=== PATIENT | female | born 1940 | race Caucasian/White ===

== ENCOUNTER 2021-02-05 13:00 | Outpatient (RCR) | payer MEDICARE, OTHER, SELFPAY ==
--- NOTE | 2020-12-06 14:06 | HP.PTEVAL_ITS ---
Patient's Visit Information RED MCMULLEN is a 80 year old F referred to Physical Therapy by BHAVESH Meyer with a diagnosis of R piriformis syndrome, thoracic kyphosis. Date of Evaluation: 12/06/20 Physical Therapist: Earle Coyne, DPT, OCS, CSCS - Visit Plan Frequency: 2-3x /Week Duration: 4-6 Weeks Plan: 2-3x/week for 4-6 weeks for... 1. start with R piriformis DTR and rollout and stretch, hip ROM and strength. 2. Progress to gneeral LE , core and post ural strength and ext of thoracic spine/posutral ex. all to HEP. Emphasize use of wh walker and posture. - Subjective I have sciatica bad. I have butt pain on R side. Has been there 4 months insidiously. It is constant in low butt R adn into groin and lateral leg. It is constant and nothing makes it better or worse. Pain is 7/10 much of time. Sleep is interupted now and then, better in recliner(change of position). Walks at home without AD but balance not great. Only one fall years ago 2009. Has neuroapthy. Uses WC today and cannot wealk real far. Back is worse with walking and standing so she avoids that. Spends day cleaning house and moving around house. needs 2 rails for steps. Can run sweeper and mow lawn on tractor. Basic ADLs are getting done I, bathing in chair that lowers her into tub. Steps I at home with rails. Not employed. Enjoys reading and cross word puzzles. Neck and shoulder are not painful but she is told that she hunches o ramonita. - Pain R LB and buttock Pain Intensity (Out of 10): 7 Pain Intensity Range: 7 - Objective Pushed back to eval room in WC, Able to walk with cane R UE with neuropathic gait pattern slow and short steps but safe 200 feet, better with wh walker but does not wish to use. Trasnfers are I chair with UE, Bed labored and weak core but able. Able to heel raise and toe raise. Sensation at deficit in feet whcih are swollen with pitting edema B today. Reflexes 1/3 patella and achilles B. Strength ankles 3+, knees 4- adn hip abd and ext 3 and flexion 3+, no pain. LE AROM WFL except R hip rotations limited 10 degrees vs L, tightness in gastroc and hip flexors. Strength UE 3+/5. Max tender to touch R piriformis, not L. Tight in R piriformis . + R hip scour. UE AROM WFL and without hesitation or pain. Scap and head are FW and protracted and kyphosis apparent in Thoracic spine. - Balance/Special Test Scores Functional Gait Assessment Score: 21 % Disability: 30.0000 Oswestry Neck Score: 6 - Goals Goal 1:: R hip pain 1/10 at worst and intermittent and manageable, 75% better. Goal Time Frame: 4-6 Weeks Goal 2:: I appropriaate HEP for posture, hip and core and LE strength safely aand I. Goal Time Frame: 4-6 Weeks Goal 3:: FGA score to diminish fall risk - Rehabilitation Potential Physical Therapy Diagnosis: R hip pain and limiting mobility. Rehabilitation Potential: Fair - Anticipated Interventions Patient/Client Instruction: Educate patient on: Condition, Plan of Care For the Purpose of:: To decrease pain, To increase ROM, To improve nutrient delivery to tissue, To increase oxygenation perfusion Therapeutic Exercise to Include: Strength training, Balance training, Postural training, Flexibilty training, Gait and locomotor training, Passive ROM, Active ROM For the Purpose of:: To decrease pain, To increase ROM, To improve muscle performance and motor function, To increase tolerance to activity/condition/position, To improve ability of physical actions for home/community/work/leisure Manual Therapy Techniques to Include: Mobilization, Soft tissue mobilization For the Purpose of:: To decrease pain, To increase ROM Thank you for the opportunity to evaluate your patient. For Medicare and Medicare HMO plans, please review the plan of care and approve it. It will need to be FAXED BACK to us at [phone] for Medicare purposes. For Medicare only, by signing this I certify the plan of care. Please let me know if there are questions or concerns regarding this plan of care. Physician Signature: Date:
--- NOTE | 2021-01-16 13:27 | HP.PTREVAL ---
BHAVESH Meyer, It has been my pleasure to treat RED MCMULLEN over the last 11 visits for R piriformis syndrome, thoracic kyphosis. Please see the progress note below for an update on the physical therapy plan of care! Subjective: Walking feels better since starting the US and IFES. Was hard to walk at times without the modalities. Still doing piriformis stretch but has held on others. Not going to doctor until 02/14. Objective/Function: Very little change to overall presentation. blacking wheel tender R piriformis moderately. Walking I with and without cane. recommended use of cane 100% of time. Still lags 10 degrees in hip rotations on R vs L. Appropriate to continue modalities and work on balance when feeling much better. Questionable prognosis. goals still appropriate and questionable prognosis. pt to contact doctor regarding f/u for next medical step as she is suspicious for hip OA. Plan Plan: 2-3x/week for 2-3 weks for US and IF Es to R hip only and work on balance when painfree. Balance/Gait/Functional tests - Balance/Special Test Scores Functional Gait Assessment Score: 20 % Disability: 33.3400 Oswestry Low Back Score: 21 Oswestry Neck Score: 6 Goals Goal 1:: R hip pain 1/10 at worst and intermittent and manageable, 75% better. Goal Time Frame: 4-6 Weeks Goal Progress: Progressing Goal 2:: I appropriaate HEP for posture, hip and core and LE strength safely aand I. Goal Time Frame: 4-6 Weeks Goal Progress: not stretching completely Goal 3:: FGA score to diminish fall risk Goal Progress: approp Anticipated Interventions Patient/Client Instruction: Educate patient on: Condition, Plan of Care For the Purpose of:: To decrease pain, To increase ROM, To improve nutrient delivery to tissue, To increase oxygenation perfusion Therapeutic Exercise to Include: Strength training, Balance training, Postural training, Flexibilty training, Gait and locomotor training, Passive ROM, Active ROM For the Purpose of:: To decrease pain, To increase ROM, To improve muscle performance and motor function, To increase tolerance to activity/condition/position, To improve ability of physical actions for home/community/work/leisure Manual Therapy Techniques to Include: Mobilization, Soft tissue mobilization For the Purpose of:: To decrease pain, To increase ROM Please do not hesitate to contact me at [phone] by phone or if you have questions or concerns regarding this new plan of care! Sincerely, Earle Coyne, DPT, OCS, CSCS
--- NOTE | 2021-03-01 09:56 | HP.PTDCSUM ---
It has been my pleasure to treat RED MCMULLEN referred by BHAVESH Meyer, with the diagnosis of R piriformis syndrome, thoracic kyphosis for a total of 16 visit(s). Discharge Date: 03/01/21 Please see the following information for a summary of their discharge status. Subjective: Pt is sore in R piriformis today and continues to need US (and home TENS) for pain relief. Pt says she's still struggling with balance and walking - says she really needs to rely on her to function. R LB and buttock Pain Intensity (Out of 10): 4 % Improvement: 75 Objective/Function: Pt was a 4/10 before and after US today, but able to amb a little better afterwards. Pt. showed small progress w/in balance activities by EOS but still finds it very challenging. Pt states she is having trouble with sit to stands. Goal 1:: R hip pain 1/10 at worst and intermittent and manageable, 75% better. Goal Progress: Progressing Goal 2:: I appropriaate HEP for posture, hip and core and LE strength safely aand I. Goal Progress: not stretching completely Goal 3:: FGA score to diminish fall risk Goal Progress: approp Plan: Returned patients phone call. she had x ray of hip and is bone on bone. will see Dr. Mathew and no more therapy at this time. Wants to ocme to HP if needs more therapy. d/c PT at this time. Discharge Comments: Returned patients phone call. she had x ray of hip and is bone on bone. will see Dr. Mathew and no more therapy at this time. Wants to ocme to [facility] if needs more therapy. d/c PT at this time. If there are questions or concerns regarding this patient's physical therapy, please feel free to call me at [phone]. Thank you for the referral of this patient. Sincerely, Earle Coyne, DPT, OCS, CSCS Balance/Gait/Functional tests - Balance/Special Test Scores Functional Gait Assessment Score: 20 % Disability: 33.3400 Oswestry Low Back Score: 21 Oswestry Neck Score: 6
== END 2021-02-05 19:00 | disposition home or self-care (01) ==
LOC: PT 13:00
PROVIDERS: PCP Physician Assistant; Visit Provider Physician Assistant
DX: M54.2 Cervicalgia (principal); G57.02 Lesion of sciatic nerve, left lower limb; M25.511 Pain in right shoulder; G89.29 Other chronic pain; M25.512 Pain in left shoulder; M40.204 Unspecified kyphosis, thoracic region
CPT/HCPCS: 97035; 97110; 97140; 97163; 97164

== ENCOUNTER 2021-06-19 11:44 | Observation (INO) | payer MEDICARE, OTHER, SELFPAY ==
--- NOTE | 2021-05-30 07:07 | PCM.HP.BLA ---
History and Physical History and Physical [facility] Patient Name: Pauline Garner : 1940 From: RANULFO BERRIOS PA-C DATE OF SURGERY: 06/19/2021 SCHEDULED PROCEDURE: right total hip arthroplasty HISTORY OF PRESENT ILLNESS: Preoperative history and physical exam was performed on May 29, 2021. This is a 80-year-old female who has had ongoing pain for the past 1 year with her right hip. Pain can reach as high as a 9/10 with activities. Her pain is constant, aching, sore. She has increased pain with going up and down stairs and walking. She does have start up pain. She gets pain located in the right buttock region around into the groin and anterior thigh. Patient has difficulty with activities of daily living including getting dressed and shopping. Patient has tried conservative measures including rest, elevation with minimal relief. She has tried heat, compression, physical therapy, home exercises without relief. She has tried oral medications including Tylenol with no relief. She has to use a lift chair at home. She denies previous surgery on the right hip. For the past 6 months she has been using a cane and walker due to the pain. Breast and colon cancer in remission. She has undergone previous total knee replacements. After failing conservative measures and discussing all treatment options with Dr. Magnus Hurt, the patient does wish to proceed with a right total hip arthroplasty. We are obtaining surgical clearance from the primary care provider Marcus Spencer. Patient currently denies any chest pain, shortness of breath, fevers chills or recent infections. REVIEW OF SYSTEMS: Review Of Systems: Constitutional: Denies anorexia, change in appetite, fever, difficulty sleeping, weight change. Cardiovasular: Denies chest pain, heart murmur, irregular heartbeat and peripheral vascular disease. Respiratory: Denies asthma, cough, pneumonia, sleep apnea, shortness of breath, tuberculosis and wheezing. Gastrointestinal: Denies constipation, diarrhea, heartburn, nausea, rectal itching, bloody stools and vomiting. Genitourinary: Denies incontinence. Musculoskeletal: Reports leg swelling and trouble walking, but denies pain and weakness. Skin: Denies Raynaud's, history of shingles and tattoo. Neurological: Reports numbness/tingling due to chemo treatments, but denies ambulatory dysfunction, dizziness and tremor Psychiatric: Denies anxiety, depression, insomnia, mental illness and stress. Hematologic/Lymphatic: Denies anemia, bleeding/bruising tendency and past transfusion. Reviewed and updated. PAST MEDICAL HISTORY: Advance Care Plan: Other Directive, LIVING WILL Effective Date: 01/31/2019 Other Directive, POA Effective Date: 01/31/2019 Past Medical History: Medical Problems: Arthritis, High Blood Pressure Cancer - Breast and colon Diabetes, Hypercholesterolemia, Vertigo Accidents: Fracture - RT Wrist Surgical Hx: Tubal Ligation - ? [facility] Cancer Surgery - (02/09/2009) EXPRESSED - [facility] Knee Replacement LT - [facility] 2012 Colon Cancer, Hernia Repair, Bilat Cataract Knee Replacement RT - (04/19/2019) SAW @ [facility] Anesthesia Complications: None Assistive Devices: Glasses, Cane, Walker Reviewed and updated. SOCIAL HISTORY: Social History: Marital: .Occupation: Retired.Work Status: Retired.Hand Dominance: Right-handed. Personal Habits: Cigarette Use: Never Smoked Cigarettes.Smokeless Tobacco: Never Used Smokeless Tobacco.E-Cigarette Use: Never used.Alcohol: Denies use.Drug Use: Denies Use.Enjoy Exercising: Never Exercises. Reviewed and updated. VITALS: Ht: 64 Wt: 170lb Wt k.112 BMI: 29.2 BP: 126/82 Pulse: 89 Resp: 16 T: 98.0 T: 36.7C Pain Level: 9 O2SatR: 99 ALLERGIES: No Known Drug Allergy MEDICATIONS: Tylenol Extra Strength 500 mg 2 pills PO 2x/day am and pm, Timolol Maleate 0.5 % daily, Cozaar 100 mg 1po qday, Metformin HCL 500 mg 3 tabs by mouth daily, Amlodipine Besylate 5 mg Take 1 tablet by mouth once daily., Atorvastatin Calcium 40 mg take 1/2 (one-half) of A tablet daily, Vitamin D3 25 mcg (1000 Ut) 1 tab by mouth daily, Metoprolol Succinate ER 25 mg take 1/2 (one-half) of A tablet by mouth daily PRE-OP EXAM: General appearance:NORMAL Other: Eyes: Conjunctivae and lids: NORMAL Pupils: ERR Ears, Nose, Mouth, and Throat: NORMAL Other: Inspection of lips, teeth and gums: NORMAL Other: Neck: Examination of neck: no masses noted. Respiratory: Assessment of respiratory effort: NORMAL Other: Auscultation of lungs: clear to auscultation no wheezes, rhonchi or rales. Cardiovascular: Auscultation of heart: regular rate and rhythm, no murmurs, gallops or rubs. PHYSICAL EXAMINATION: Patient currently using walker. Walks with antalgic gait. Right hip is cool to touch without erythema. Range of motion: Flexion 90, internal rotation neutral, external rotation 20. She has increased pain with range of motion. Sensation intact to light touch. IMAGING STUDIES: X-rays were obtained that [facility] on May 29, 2021 including 3 views AP pelvis, AP right hip, crossfire lateral right hip reveals joint space narrowing with subchondral sclerosis and osteophyte formation consistent with severe stage IV osteoarthritis. Patient has significant central wear pattern with wear medially consistent with acetabular protrusio. IMPRESSION: 1. Severe right hip osteoarthritis 2. Hypertension 3. Type 2 diabetes mellitus 4. Hypercholesterolemia 5. Vertigo 6. History of cancer including breast and colon currently in remission PLAN: Dr. Magnus Hurt did discuss and review with the patient all treatment options including surgical versus nonsurgical options. Patient does wish to proceed with the above-stated procedure. Potential risks, benefits, and complications of the procedure were discussed in detail including but not limited to , infection, nerve and blood vessel damage, persistent pain, numbness, tingling, paresthesias, blood clot, pulmonary embolism, and requirement for possible further surgery. The patient expressed full understanding and has no further questions for the doctor. Patient does agree to proceed with the above-stated procedure and has signed the surgery consent form. We discussed the current risks associated with COVID 19. This does include the risk of exposure while in the hospital. Patient was reassured local hospitals have low infection rates and are taking all necessary precautions to avoid exposure to patients. In addition, we discussed strategies that can be used to help limit exposure including those that limit the patient's time in the hospital. Also using strategies to limit the patient's need for continued inpatient services after being discharged from the hospital. Patient was notified that we will need to comply with any screening or testing the hospital wishes to perform or that surgery may be delayed for any positive results. This dictation was created using voice recognition software. Phonetic and/or grammatical errors may exist. ___ I have re-examined the patient. There are no clinical changes since date of exam. ___ See progress notes for changes. ___ Dictated on admission Date: Time: Signature:
[2021-06-06 12:03] LABS: Hemoglobin A1c 7.1 % (3.8-5.6)
[2021-06-06 12:16] LABS: Magnesium 1.3 mg/dL (1.6-2.6)
[2021-06-19] VITALS (13 sets, daily range): BP systolic 125–180; BP diastolic 60–92; PULSE 69–95; RESP 15–18; TEMP 36.1–37.4; O2SAT 93–100; BMI 29.3
--- NOTE | 2021-06-19 | HIP_PTH ---
PATIENT: RED MCMULLEN LOC: [id number] U#:[id number] AGE/SX: 80/F ROOM: [facility] RE06/19/[address]: Dr. Magnus Hurt MD : 1940 BED: 1 DIS: 06/20/2021 SPEC #: [id number] RECD: 06/19/21 13:58 STATUS: JONI SNEED #: [id number] DRU: 06/19/21 00:[address]: Magnus Hurt DEPT: SURGICAL PATHOLOGY RECD BY: Joseph Rapp ENTERED: 06/20/21 08:35 SP TYPE: TOTAL HIP OTHR DR: MD Marietta Wallace PA Tissues: Hip, NOS Procedures: Decalcification bone/plaque Surgery Specimen Level IV HEADER OPERATION: ERAS, total hip anterior approach PRE-OP DIAGNOSIS: Right hip osteoarthritis TISSUE SUBMITTED: Right hip bone and tissue MICROSCOPIC DIAGNOSIS Right femoral head, total hip replacement/resection: Femoral head with degenerative osteoarthritic changes. FALGUNI:jaguar 06/25/2021 MICROSCOPIC DESCRIPTION Slides are reviewed. GROSS DESCRIPTION Received is one container labeled with the patient's name and designated right hip bone and tissue. The specimen consists of a aparicio femoral head measuring 4.5 x 4.5 x 4 cm. Also present in the container is a detached piece of bone consistent with femoral neck measuring 5.5 x 4.5 x 2 cm. The articular surface displays prominent osteophyte formation, eburnation and bone erosion. Also present in the specimen container are multiple pieces of soft tissue predominantly consisting of bone reamings measuring in aggregate 7.5 x 7 x 2 cm. Material Liaison sections are submitted in two cassettes after decalcification as follows: 1 ? bone reamings, 2 ? femoral head. / FALGUNI:jaguar 06/21/2021 TC:5 CPT: 42986, 79910
--- NOTE | 2021-06-19 07:02 | OP.PCM_ITS ---
Report of Operation Date of Procedure: 06/19/21 Pre-Operative Diagnosis: Right hip primary osteoarthritis Post-Operative Diagnosis: Right hip primary osteoarthritis Surgery/Procedure Performed:: Right minimally invasive direct anterior total hip replacement Description of Surgical Findings:: Stable hip with equal leg length Surgeon: Magnus Hurt director of global sales: Magdy Kunz Type of Anesthesia: Spinal Special Medications: 2 g Ancef, 1 g TXA at incision, 1 g TXA closure, 10 mg Decadron, joint cocktail (5 mg Duramorph, 30 mL of 0.5% Ropivicaine, 1000 units of epinephrine, 30 mg of Toradol) Specimen's removed: Bony cuts Estimated Blood Loss (mL): 300 Fluids Replaced: 900 milliliters crystalloid Description of Procedure: Components used: 1. Accolade 2 Kady femoral stem size 3 127? 2. [place] trident 2 acetabular shell size 52 mm 3. Kady X3 polyethylene E 4. Kady Biolox delta 36mm, 0mm femoral head Brief history operative indications: 80 yo F who failed conservative measures for their hip osteoarthritis. X-rays were consistent with osteoarthritis including joint space narrowing, osteophyte formation and subchondral cysts. Total hip replacement was discussed with the patient with risks and benefits including but not limited to blood loss, DVTs, PEs, neurovascular damage, dislocation, general risks of anesthesia including loss of life. Patient demonstrated an understanding medical clearance is obtained the patient was consented for surgery. Procedure: On the date of procedure the patient's right hip was marked in the preoperative area. Patient was then taken back to the operating room where anesthesia assumed control of the C-spine and airway and administered anesthetic. Patient was transferred to the operating table and placed in the supine position. The hips were placed at the break of the bed and a sacral bump was placed. The right lower extremity was then prepped out in a sterile fashion using chlorhexidine while the surgeon scrubbed. The PA was vital in the positioning of the patient. Upon reentering the room the right lower extremity was draped in the standard orthopedic fashion and the incision was marked. A timeout was called and everyone agreed upon the side, the site, the procedure be performed, antibody given, and patient's identity. At this time incision was made through skin, subcutaneous tissue, and fat down to fascia. The fascia was then incised and the TFL was retracted laterally. A retractor was placed on the lateral border of the femoral neck. Attention was directed to the inferior portion of the approach and all crossing vessels were identified and appropriately coagulated. A retractor was then placed on the medial portion of the femoral neck. The anterior capsule was then cleared of all soft tissue and then H shaped capsulo nabil was made. The retractors were then placed inside the capsule. The femoral neck was identified and a cleanup cut was made. At this time a power corkscrew was used to remove the femoral head. Attention was then turned toward the acetabulum where the soft tissues were appropriately retracted and the acetabulum was sequentially reamed to 52 mm. A 52 mm cup was then selected and impacted into place. Acetabular liner was impacted into place and locking mechanism was verified. The position of the acetabular cup was then verified under live fluoroscopy. Attention was then turned to the femur. Soft tissue releases on the medial and lateral femoral neck were appropriately done, the leg was externally rotated and lateralized. A Campo retractor was placed medially and proximally to the greater trochanter this allowed appropriate visualization and exposure of the femoral canal. Rongeour was then used to remove excess lateral bone. A canal finder and entry broach were used to open the proximal canal. Once we verified we were down the femoral canal we subsequently broached up to a size 3 femur. The appropriate neck was placed in the previously selected head was trialed with a 0 mm neck. Traction was pulled and the hip was reduced with internal rotation. Once it was appropriately reduced and stability was checked. There was minimal shuck, equal leg lengths and appropriate stability with hyperextension and external rotation as well as with 90? flexion and internal rotation. Fluoroscopy was then also used to verify the position of the components and leg lengths using the contralateral side for comparison. The trial components were then dislocated the proximal femur was again exposed and the components were removed from the wound. The final components were ramonita ified and opened. The wound was copiously irrigated out with normal saline. The acetabulum was checked for any residual debris. The final components were placed and impacted. Traction and internal rotation were again used to reduce the hip. After adequate reduction the hip remained stable with appropriate leg lengths. The final components were once again checked with live fluoroscopy and were found to be satisfactory. The wound was then copiously irrigated with normal saline once more, and hemostasis was obtained. Closure was then done using #1 Vicryl runner to close the fascia. A 2-0 vicryl interuppted sutures were used to close the subcutaneous skin. A 3-0 Monocryl and Steri-Strips were used for final skin closure. A Silverlon dressing was placed. Patient was awakened by anesthesia and transferred to the [facility]. Patient was then transferred to the PACU for recovery. During the course of the procedure the physician events specialist (PE) played a vital role. Their intimate knowledge of my steps in the procedure aided in safe and expedient completion of the procedure. The PE played a vital rolls in positioning particularly in obtaining the appropriate positioning of the sacral bump. The PE was also vital in the retraction of soft tissues during the exposure and especially the femoral work as this is a vital part of the procedure to prevent complications and fractures. The PE was also vital and protecting soft tissues during times of bony cuts and reaming. He also played a vital role in closure with my direct supervision. The PE was also important during reduction and dislocation of the joint and trials intraoperatively. Postoperative plan: Patient will get 24 hours postop antibiotics. Patient will get in-house physical therapy and will be weight-bear as tolerated. Patient will follow up in office in 2 weeks for a wound check and x-rays. Aspirin 81 mg twice daily. Patient be placed on doxycycline for 2 weeks postoperatively secondary to diagnosis of diabetes with hemoglobin A1c greater than 7. Complications No intraoperative complications Admit VTE Documentation VTE Present on Admission: No VTE Mechan Device Prophylaxis: SCD's and Thigh High SENA Hose VTE Pharm Prophylaxis ordered?: Yes
[2021-06-19] MEDS: Celecoxib 200 MG Capsule 400 MG PO (09:23)
[2021-06-19] MEDS: Gabapentin 600 MG Tablet PO (09:24)
[2021-06-19] MEDS: Lactated Ringers 1,000 ML 999 ML IV ×2 (09:24→13:35)
[2021-06-19] MEDS: Acetaminophen 500 MG Tablet 1000 MG PO ×3 (09:24→22:11)
[2021-06-19] MEDS: Insulin Lispro 100 UNIT/ML INSULN.PEN SC ×2 (09:28→22:09)
[2021-06-19] MEDS: Lactated Ringers 1,000 ML 75 ML IV (10:59)
[2021-06-19] MEDS: Cefazolin 2 GM in 0.9% Normal Saline 100 ML IV (11:59)
[2021-06-19] MEDS: Lactated Ringers 1,000 ML 125 ML IV (12:00)
[2021-06-19] MEDS: TXA 1000mg in NS100 100ml (IVPB at Incision) 660 MG IV (12:01)
--- NOTE | 2021-06-19 12:31 | RAD_ITS ---
STUDY: INTRAOPERATIVE FLUOROSCOPY TECHNIQUE: The examination was performed with referring physician in attendance. Under fluoroscopic observation, fluoroscopic images were obtained. Radiologist was not present for the study. Radiologist did not perform the procedure. This dictation is for documentation of the radiation dosage only. There is no interpretation of the images. TOTAL NUMBER OF IMAGES: 1 COMPARISON: None RADIATION DOSE: 0.55 mGy FLUOROSCOPY TIME: 4.1 seconds REASON FOR EXAM: PAIN Female, 80 years old. FINDINGS: Total right hip arthroplasty. RAD/Hip 1 view with Pelvis IMPRESSION: Fluoroscopic assistance images were obtained. Dictation for documentation purposes only. Electronically Signed: Vincent Cabrera MD at 16:02 EDT ,
[2021-06-19] MEDS: TXA 1000mg in NS100 100ml (IVPB at Closure) 660 MG IV (12:46)
--- NOTE | 2021-06-19 13:36 | PCM.PN.HOSP ---
Subjective Subjective Patient reports pain controlled status post recent right minimally invasive direct anterior total hip replacement per Dr. Hurt. Patient in PACU and awakening. Per discussion with staff patient did have lower blood pressures following sedation and this did have to be mildly decreased. Initially patient very fatigued but waking up and answering questions appropriately during evaluation. Patient denies fevers, chills, nausea, emesis, abdominal pain, chest pain or dyspnea. Objective Data Objective Data Vital Signs: Vital Signs Temp Pulse Resp BP Pulse Ox 97 F L 82 16 130/74 H 93 06/19/21 13:30 06/19/21 13:30 06/19/21 13:30 06/19/21 13:30 06/19/21 13:30 Oxygen Delivery Method Room Air Weight: 171 lb Body Mass Index (BMI) 29.3 Intake & Output: Intake and Output for Last 24 Hours 06/17/21 06/18/21 06/19/21 23:59 23:59 23:59 Intake Total 1330 / 1330 Balance 1330 / 1330 Lab / Micro Data Micro: Microbiology 06/06/21 11:13 Swab (Method) Nasal Screen MRSA/MSSA - Final Physical Exam Narrative Physical Examination: General: Awakens during evaluation, becomes more alert, oriented to self, place, month and gives correct date of and other information, remains cooperative, laying in the PACU bed, fatigued appearing. Skin: Normal color, normal turgor, no icterus, no cyanosis except recent right hip replacement with dressing in place, no. HEENT: AT/NC, EOMI, PERRLA, moderately dry MM, no carotid bruits or JVD noted. Lungs: Mild diminished, greater bases, appropriate effort, no rales, ronchi or wheezing. Heart: Currently regular rate and rhythm; no gallop, rub audible. Abdomen: Soft, NTTP, ND, distant normal BS, no HSM. Extremities: No cyanosis, no clubbing, bilateral pedal swelling, status post recent right hip replacement with dressing in place, no drainage. Neurological: Patient awakens to stimuli, becomes more alert, orientation improving during evaluation, cognitive function near baseline intact; pupils equally reactive to light and accommodation, cranial nerves grossly normal, moving all 4 extremities, given recent wire strength moderately to severely global decreased Psychiatric: Affect appears fatigued but improving, no acute evidence of depressive or anxiety feelings. Assessment & Plan Assessment/Plan (1) Osteoarthritis: QUALIFIERS: Osteoarthritis location: hip Osteoarthritis type: primary Laterality: right Qualified Code(s): M16.11 - Unilateral primary osteoarthritis, right hip PLAN: The patient is an 80 y/o F w/ PMHx: HTN, HLD, Diabetes mellitus type II, Severe OA R hip who presents to the [facility] on 06/19/21 for planned R minimally invasive direct anterior hip replacement. #1. Severe Osteoarthritis, right hip: Failed conservative therapies and treatments, admitted per Dr. Hurt for planned R minimally invasive direct anterior hip replacement, post-operative pain management, bowel regimen, DVT Prophylaxis, PT/OT/CM per Orthopedic surgery discretion. #2. Hypertension: Continue home regimen including amlodipine, metoprolol, losartan with hold parameters as needed, PRN hydralazine. #3. Hyperlipidemia: We will continue patient on statin therapy. #4. Diabetes mellitus type II: Orthopedic surgery has continued patient oral metformin but may consider hold, transition insulin sliding scale to AC at bedtime, continue ADA diet. #5. DVT prophylaxis: SCDs, chemoprophylaxis per orthopedic surgery discretion given recent OR. Charges/Coding Visit Charges Inpatient E&M: 85696 Subs Hosp L3
--- NOTE | 2021-06-19 13:45 | RAD_ITS ---
STUDY: X-RAY - PELVIS AND RIGHT HIP REASON FOR EXAM: Postoperative evaluation of right hip arthroplasty. TECHNIQUE: 2 views of the pelvis and hip. COMPARISON: Intraoperative fluoroscopic images. FINDINGS: There is postoperative gas in the soft tissues. There is a right hip arthroplasty without evidence of complication. RAD/Hip Min 2 Views (Portable) IMPRESSION: Uncomplicated right hip arthroplasty. Electronically Signed: Fabricio Paul MD at 14:53 EDT ,
[2021-06-19 14:30] LABS: Bedside Glucose 131 mg/dL (74-106)
[2021-06-19 16:06] LABS: Bedside Glucose 281 mg/dL (74-106)
[2021-06-19 16:45] LABS: Bedside Glucose 144 mg/dL (74-106)
[2021-06-19] MEDS: metFORMIN HCl 500 MG Tablet PO (16:56)
[2021-06-19] MEDS: 0.9% Saline Lock 10 ML Syringe IV (17:40)
[2021-06-19] MEDS: Ondansetron 4 MG/2 ML Vial IV (17:40)
[2021-06-19] MEDS: Cefazolin 1 GM/50 ML BAG IV (21:11)
[2021-06-19] MEDS: Dorzolamide HCL/Timolol 10 ml Bottle 1 DRP EACH EYE (22:08)
[2021-06-19] MEDS: Senna/Docusate Sodium 1 Tablet 2 TABLET PO (22:11)
[2021-06-19] MEDS: Atorvastatin Calcium 20 MG Tablet PO (22:11)
[2021-06-19 22:20] LABS: Bedside Glucose 210 mg/dL (74-106)
[2021-06-20] MEDS: Cefazolin 1 GM/50 ML BAG IV (04:49)
[2021-06-20 05:05] VITALS: BP 154/76; PULSE 74; RESP 16; TEMP 36.7; O2SAT 98
[2021-06-20 05:31] LABS: Hematocrit 36.7 % (37-47); Mean Corpuscular Hgb 29.8 pg (27.0-32.0); Mean Corpuscular Volume 99.5 fL (81-99); Mean Platelet Vol. 10.3 fl (6.2-12.0); Platelet Count 147 K/mm3 (150-450); RBC Distribution Width CV 13.2 % (11.6-14.6); RBC Distribution Width SD 48.1 fl (35.1-43.9); Red Blood Count 3.69 M/mm3 (4.2-5.4); White Blood Count 6.5 K/mm3 (4.4-11.0)
[2021-06-20 05:49] LABS: Anion Gap 5 (5-15); BUN 10 mg/dL (7-18); BUN/Creat Ratio 14.4 RATIO (10-20); Chloride 100 mmol/L (98-107); EST Glomerular Filtration Rate 86 mL/min (>60); Est Glom Filt Rate - Afr Amer 104 mL/min (>60); Glucose 135 mg/dL (74-106); Potassium 3.7 mmol/L (3.5-5.1); Sodium Level 132 mmol/L (136-145)
[2021-06-20] MEDS: Acetaminophen 500 MG Tablet 1000 MG PO ×2 (06:40→13:52)
[2021-06-20 06:50] LABS: Bedside Glucose 133 mg/dL (74-106)
[2021-06-20] MEDS: Ensure Surgery 237 ML LIQUID PO ×2 (07:55→11:31)
[2021-06-20] MEDS: Aspirin 81 MG TAB.CHEW PO (07:56)
[2021-06-20] MEDS: metFORMIN HCl 500 MG Tablet PO ×2 (07:56→11:32)
[2021-06-20] MEDS: Dorzolamide HCL/Timolol 10 ml Bottle 1 DRP EACH EYE (07:57)
--- NOTE | 2021-06-20 08:27 | PCM.PN.ORT ---
Subjective Subjective The patient was sitting in bedside chair upon examination. Patient denies any chest pain, shortness of breath, dizziness, lightheadedness, nausea or vomiting, or calf pain. Pain is controlled on medications. No adverse overnight events. Patient overall is doing very well this morning. She has no complaints. She is asking about discharge home today. Objective Data Objective Data Vital Signs: Vital Signs Temp Pulse Resp BP Pulse Ox 98.1 F 74 16 154/76 H 98 06/20/21 05:05 06/20/21 05:05 06/20/21 05:05 06/20/21 05:05 06/20/21 05:05 Oxygen Flow Rate (L/min) 4 Oxygen Delivery Method Room Air Weight: 77.564 kg Body Mass Index (BMI) 29.3 Intake & Output: Intake and Output for Last 24 Hours 06/18/21 06/19/21 06/20/21 23:59 23:59 23:59 Intake Total 4393.5 / 4393.5 350 / 350 Output Total 150 / 150 Balance 4243.5 / 4243.5 350 / 350 Lab / Micro Data Result Diagrams: 06/20/21 05:20 06/20/21 05:20 Labs: Laboratory Results - last 24 hr 06/19/21 08:56: POC Glucose 281 H 06/19/21 14:25: POC Glucose 131 H 06/19/21 16:40: POC Glucose 144 H 06/19/21 22:06: POC Glucose 210 H 06/20/21 05:20: WBC 6.5, RBC 3.69 L, Hgb 11.0 L, Hct 36.7 L, MCV 99.5 H, MCH 29.8, MCHC 30.0 L, RDW Std Deviation 48.1 H, RDW Coeff of Abdiaziz 13.2, Plt Count 147 L, MPV 10.3 06/20/21 05:20: Sodium 132 L, Potassium 3.7, Chloride 100, Carbon Dioxide 27.0, Anion Gap 5, BUN 10, Creatinine 0.70, Estim Creat Clear Calc 38.10, Est GFR (MDRD) Af Amer 104, Est GFR (MDRD) Non-Af 86, BUN/Creatinine Ratio 14.4, Glucose 135 H, Calcium 9.0 06/20/21 06:40: POC Glucose 133 H Micro: Microbiology 06/06/21 11:13 Swab (Method) Nasal Screen MRSA/MSSA - Final Radiography Diagnostic Testing: Radiology Impression Hip/Pelvis X-Ray 06/19/21 12:31 IMPRESSION: Fluoroscopic assistance images were obtained. Dictation for documentation purposes only. Electronically Signed: Vincent Cabrera MD at 16:02 EDT , Hip X-Ray 06/19/21 13:45 IMPRESSION: Uncomplicated right hip arthroplasty. Electronically Signed: Fabricio Paul MD at 14:53 EDT , Physical Exam Narrative Vital signs stable and afebrile. Right hip is soft and supple SENA hose are in place, SCDs are currently off while she is in the bedside chair Patient is able to plantarflex and dorsiflex actively. Sensation is intact to light touch to saphenous, sural, superficial and deep peroneal, and tibial distribution. Dressing is clean dry and intact. Negative Homans bilaterally, negative signs and symptoms of DVT. Const alert, oriented x3 and no apparent distress Assessment & Plan Assessment/Plan (1) Status post total hip replacement, right: PLAN: 1. S/P direct anterior right total hip arthroplasty POD #1 2. Continue Pain Medications: Tylenol and tramadol. 3. DVT Prophylaxis: Take 81 mg aspirin twice daily for 4 weeks postoperatively for DVT prophylaxis 4. PT/OT: Weightbearing as tolerated with walker 5. H & H: 11.0/36.7, asymptomatic. Postoperative anemia secondary to acute blood loss from surgery without any intra operative complications. 6. Continue postoperative medical management per medicine 7. Encouraged Incentive Spirometry 8. Continue antibiotics for 2 weeks postoperatively secondary to diagnosis of diabetes with hemoglobin A1c greater than 7.0. Currently on doxycycline 2 weeks postoperatively. Also discussed with patient sensitivity to sunlight with this medication. 9. Disposition: Plan will be for probable discharge today as long as medically cleared, patient tolerates therapy, and pain well controlled. Prescription for the tramadol will be placed on the chart. Remaining prescriptions will be E scribed to [facility] [place] in [facility]. Patient has outpatient physical therapy established. She will follow-up per postop instructions. Upon discharge patient will contact our office with any concerns or questions. I have reviewed the [employer] Reporting System (OARRS) report for this patient for refill pattern and other prescriber involvement as part of the appropriate surveillance for the provision of acute and chronic controlled medications. The report was requested and reviewed on the date of this entry and was considered in the prescribing process.
--- NOTE | 2021-06-20 08:31 | DCINST_ITS ---
Discharge Instructions Diet Discharge Diet: No restrictions Activity Discharge Activity: May Not Drive (For 6 weeks postoperatively and while taking narcotic pain medications. Must be able to walk 100 feet without the use of cane or walker.) and May Shower (Do not submerge incision underwater for 6 weeks postoperatively.) May shower in (days): 1 (only if incision is dry and without drainage. Do NOT soak/submerge in tub/pool/baptiste/stream/hot tub.)) Ice area for (Minutes): 20 (Every 1-2 hours while awake[address] place barrier between ice and skin.) Weight Bearing Status: Weight bearing as tolerated Keep extremity elevated above heart level: Operative Extremity Dressing / Incision Call your doctor if your incision/area has: Continuous Slow Oozing, Sudden Increased Bleeding, Increased Pain/ Swelling, Increased Redness and Foul Smelling Discharge Call your doctor if you observe: Fever of 101 or Higher, Shortness of breath, Chest pain, Calf discomfort and Uncontrolled pain Remove Dressing in: 4 days (Okay to remove dressing on June 24, 2021) Additional Dressing/Incision Instructions:: Follow [facility] Post-op Instructions. Once postoperative dressing has been removed, only use gentle soap and water over the incision. Do not use any ointments, Neosporin, salves, alcohol pads over the incision for 6 weeks postoperatively. Do not submerge underwater for 6 weeks postoperatively. Continue with SENA hose/elastic stockings for 2 weeks postoperatively. May remove at nighttime but needs to be placed back on the leg during the day. Do NOT use alcohol with narcotic pain medication. Do NOT make important decisions while taking narcotic medication. If you have problems with taking your medication (rash, itching, nausea, etc.) call the office at once. Follow Up Care Test Results: Test results from this visit will be discussed in further detail at your follow-up appointment, if applicable. Discharge Plan Admission Admit Date/Time: 06/19/21 11:44 Attending Provider: Magnus Hurt Primary Care Provider: Marietta Spencer Consulting Providers: Vanesa Hendrix Discharge Orders/Prescriptions Prescriptions: New acetaminophen 500 mg Tablet 1,000 mg PO Q8 30 Days Qty: 100 RF: 0 aspirin 81 mg Tablet,Chewable 81 mg PO BIDCM 30 Days Qty: 60 RF: 0 sennosides-docusate sodium [Stool Softener-Stimulant Laxat] 8.6-50 mg Tablet 2 tab PO BID Qty: 20 RF: 0 tramadol 50 mg Tablet 50 - 100 mg PO Q6H PRN PRN (Reason: Pain Score 4-10) 5 Days Qty: 42 RF: 0 famotidine 20 mg Tablet 20 mg PO DAILY 30 Days Qty: 30 RF: 0 doxycycline monohydrate 100 mg Capsule 100 mg PO BID 14 Days Qty: 28 RF: 0 Continued atorvastatin 40 MG tablet 20 mg PO QHS RF: 0 metformin 500 MG tablet 500 mg PO TID RF: 0 losartan 50 MG tablet 100 mg PO DAILY RF: 0 amlodipine 5 MG tablet 5 mg PO DAILY RF: 0 cholecalciferol (vitamin D3) [Vitamin D3] 1,000 UNIT tablet 1,000 unit PO DAILY RF: 0 metoprolol succinate 25 mg tablet extended release 24 hr 12.5 mg PO DAILY RF: 0 dorzolamide-timolol 22.3-6.8 mg/mL drops 1 drp RF: 0 Referrals / Follow Up: Physical,Therapy [Other] - 06/24/21 12:30 pm Marietta Spencer PA [Primary Care Provider] - Magdy Kunz PA-C [PHYSICIAN RETREAD OPERATOR] - 07/04/21 1:45 pm Disposition Disposition (needs filled in before D/C Order can be placed): Home, Self Care
--- NOTE | 2021-06-20 09:52 | PCM.PN.HOSP ---
Subjective Subjective Feels well. No complaints. Objective Data Objective Data Vital Signs: Vital Signs Temp Pulse Resp BP Pulse Ox 36.7 C 74 16 154/76 H 98 06/20/21 05:05 06/20/21 05:05 06/20/21 05:05 06/20/21 05:05 06/20/21 05:05 Oxygen Flow Rate (L/min) 4 Oxygen Delivery Method Room Air Weight: 77.564 kg Body Mass Index (BMI) 29.3 Intake & Output: Intake and Output for Last 24 Hours 06/18/21 06/19/21 06/20/21 23:59 23:59 23:59 Intake Total 4393.5 / 4393.5 350 / 350 Output Total 150 / 150 Balance 4243.5 / 4243.5 350 / 350 Lab / Micro Data Result Diagrams: 06/20/21 05:20 06/20/21 05:20 Labs: Laboratory Results - last 24 hr 06/19/21 08:56: POC Glucose 281 H 06/19/21 14:25: POC Glucose 131 H 06/19/21 16:40: POC Glucose 144 H 06/19/21 22:06: POC Glucose 210 H 06/20/21 05:20: WBC 6.5, RBC 3.69 L, Hgb 11.0 L, Hct 36.7 L, MCV 99.5 H, MCH 29.8, MCHC 30.0 L, RDW Std Deviation 48.1 H, RDW Coeff of Abdiaziz 13.2, Plt Count 147 L, MPV 10.3 06/20/21 05:20: Sodium 132 L, Potassium 3.7, Chloride 100, Carbon Dioxide 27.0, Anion Gap 5, BUN 10, Creatinine 0.70, Estim Creat Clear Calc 38.10, Est GFR (MDRD) Af Amer 104, Est GFR (MDRD) Non-Af 86, BUN/Creatinine Ratio 14.4, Glucose 135 H, Calcium 9.0 06/20/21 06:40: POC Glucose 133 H Micro: Microbiology 06/06/21 11:13 Swab (Method) Nasal Screen MRSA/MSSA - Final Radiography Diagnostic Testing: Radiology Impression Hip/Pelvis X-Ray 06/19/21 12:31 IMPRESSION: Fluoroscopic assistance images were obtained. Dictation for documentation purposes only. Electronically Signed: Vincent Cabrera MD at 16:02 EDT , Hip X-Ray 06/19/21 13:45 IMPRESSION: Uncomplicated right hip arthroplasty. Electronically Signed: Fabricio Paul MD at 14:53 EDT , Physical Exam Const alert and no apparent distress Resp normal respiratory effort, no retractions, no use of accessory muscles and clear to auscultation bilaterally Cardio regular rate, regular rhythm, S1 normal heart sound and S2 normal heart sound GI normal to inspection, nondistended, normoactive bowel sounds, soft to palpation, non-tender and non-distended Extremity normal to inspection Neuro Sensorium / Orientation: awake and alert Assessment & Plan Assessment/Plan (1) Status post total hip replacement, right: PLAN: 1. s/p Right hip replacement stable mgmt per orthopaedics. 2. VTE prophylaxis: ASA BID per orthopaedics. EMILY Kunz, she has had epistaxis with NSAIDs in past. Consider Afrin if occurs in the future despite conservative measures. Medically stable for discharge. EMILY Kunz. Charges/Coding Visit Charges Inpatient E&M: 48771 Subs Hosp L2
--- NOTE | 2021-06-20 10:14 | CASEMGMT ---
Social Work Note Per high school admissions representative questions, pt has completed HCPOA and LW and provided documents to [facility]. SW reviewed chart, no documents are on file. SW in to speak with pt. SW introduced self and role at [facility]. SW spoke with pt regarding HCPOA and LW. Pt states that she has completed both documents, states that her Curt is HCPOA and then it is son Mihai. SW informed pt that HCPOA and LW are not on file at [facility]. Pt states she is able to bring in documents. Mariama Ayala VP SOFTWARE SUPPORT, SULFIDE HEAD OPERATOR
[2021-06-20] MEDS: Senna/Docusate Sodium 1 Tablet 2 TABLET PO (10:20)
[2021-06-20] MEDS: amLODIPine 5 MG Tablet PO (10:20)
--- NOTE | 2021-06-20 10:20 | CASEMGMT ---
AGUSTINA ARREDONDO Face to Face with patient for initial transition planning/care coordination assessment. RN CM introduced self and role at [facility]. Patient sitting in chair, alert and oriented. Patient willing to participate in assessment and is able to answer all questions appropriately. Care providers, pharmacy, and demographics verified. Patient wishes to discharge home and is setup with outpatient therapy at [facility]. Patient states she has no further needs or concerns at this time. CM to follow for discharge planning needs that may arise. PCP: Tj Specialists: Asif Hurt; John, oncologist Preferred Pharmacy: [facility] Insurance: [employer] Prescription Benefit: yes Living Will/HPOA: yes, Curt Garner LNOK: , daughter Living Arrangements: Patient lives with in a single story with 1 steps and grab bar to enter the home. Patient was independent at home prior to surgery Transportation: DME/HHC: Patient states she has shower chair, raised toilet, cane, walker, wheelchair at home. Patient is setup with outpatient therapy with [facility]. Disposition Plan: Patient to discharge home with family support and follow-up plans in place. Mariama GUTIÉRREZ, RN, CM
[2021-06-20 10:21] VITALS: BP 132/66; PULSE 76
[2021-06-20] MEDS: Famotidine 20 MG Tablet PO (10:21)
[2021-06-20] MEDS: Cholecalciferol (VIT D3) 25 MCG TABLET (1,000 UNITS) PO (10:21)
[2021-06-20] MEDS: Metoprolol(XL)Succ 25 MG Tablet 12.5 MG PO (10:21)
[2021-06-20] MEDS: Losartan Potassium 100 MG Tablet PO (10:22)
[2021-06-20 10:28] VITALS: BP 132/66; PULSE 76; RESP 16; TEMP 36.5; O2SAT 99
[2021-06-20] MEDS: Insulin Lispro 100 UNIT/ML INSULN.PEN SC (11:31)
[2021-06-20 11:32] VITALS: O2SAT 99
[2021-06-20] MEDS: Doxycycline 100 MG CAPSULE PO (11:32)
[2021-06-20 11:40] LABS: Bedside Glucose 200 mg/dL (74-106)
[2021-06-20 14:00] VITALS: BP 133/78; PULSE 67; RESP 16; TEMP 36.3; O2SAT 99
--- NOTE | 2021-06-20 14:00 | CASEMGMT ---
M in to complete ESQUIVEL form with patient. RN CM explained ESQUIVEL form to patient, patient voiced understanding. Patient signed ESQUIVEL form and filed in chart. Patient provided with copy of signed ESQUIVEL form Patient had no further questions or concerns at this time.
--- NOTE | 2021-06-20 15:14 | PHA.DC.MR ---
Pharmacy Service has performed discharge medication reconciliation for this patient. The patient's discharge medication list was reviewed for discrepancies and discrepancies were resolved. Was unable to youth counselor before patient was discharged. Medications were reviewed. Home Medications atorvastatin 20 mg PO QHS 12/23/12 metformin 500 mg PO TID 12/23/12 losartan 100 mg PO DAILY 01/26/14 amlodipine 5 mg PO DAILY 03/20/15 cholecalciferol (vitamin D3) [Vitamin D3] 1,000 unit PO DAILY 03/20/15 metoprolol succinate 12.5 mg PO DAILY 06/04/21 dorzolamide-timolol 1 drp 06/19/21 acetaminophen 1,000 mg PO Q8 30 Days #100 tab 06/20/21 aspirin 81 mg PO BIDCM 30 Days #60 tab 06/20/21 doxycycline monohydrate 100 mg PO BID 14 Days #28 cap 06/20/21 famotidine 20 mg PO DAILY 30 Days #30 tab 06/20/21 sennosides-docusate sodium [Stool Softener-Stimulant Laxat] 2 tab PO BID #20 tab 06/20/21 tramadol 50 - 100 mg PO Q6H PRN PRN 5 Days #42 tab 06/20/21
== END 2021-06-20 14:05 | disposition home or self-care (01) ==
LOC: SDC 11:45 → MS3 11:45
PROVIDERS: Anesthesiology; Admitting Provider Specialist; PCP Physician Assistant; Referring Provider Specialist; Visit Provider Specialist
PROC: (CPT 27284; principal; 2021-06-19 10:50)
DX: M16.11 Unilateral primary osteoarthritis, right hip (principal); E11.9 Type 2 diabetes mellitus without complications; Z79.84 Long term (current) use of oral hypoglycemic drugs; I10 Essential (primary) hypertension; E78.00 Pure hypercholesterolemia, unspecified; R42 Dizziness and giddiness; Z79.899 Other long term (current) drug therapy
CPT/HCPCS: 27130; 01214; 36415; 73501; 73502; 76000; 80048; 82962; 83036; 83735; 85027; 87081; 88305; 88311; 96365; 96366; 96375; 97110; 97116; 97162; 97166; 97530; 97535; 99218; 99251; C1776; J7120; A4216; G0378; G0463; J2405

== ENCOUNTER 2021-08-23 11:00 | Outpatient (RCR) | payer MEDICARE, OTHER, SELFPAY ==
--- NOTE | 2021-06-24 13:55 | HP.PTEVAL ---
Patient's Visit Information RED MCMULLEN is a 80 year old F referred to Physical Therapy by Gomez Kunz PA-C with a diagnosis of Right THR 06/19/21. Date of Evaluation: 06/24/21 Physical Therapist: Luciana Mitchell DPT - Visit Plan Frequency: 3x /Week Duration: 4 Weeks Plan: 06/19/21- Right THR- Focus on LE and core strength/stabilization with functional mobility. HEP Given IE: HR/TR, weight shift, glut set, quad set, ankle pumps, seated marching (less than 90 degrees), hip add with ball - Subjective Patient reports that she has a right total hip replacement June 19, [address] Hurt- she stayed overnight. She lives with her and lives in a single story home with 2 stairs to enter with bilateral handrail. She is able to get in/out okay with assistance. Prior to surgery she was fully I with all ADL's but right before surgery she required assistance due to the pain. She has had cancer so she had neuropathy prior to surgery. She is not taking pain medication is sticking to Tylenol. She is sitting in a lift chair and using a FWW. Prior to surgery she was using a cane and/or walker. She still has some groin pain that radiates to the outside of the leg. Eases: recliner and ice machine. Best: 0/10 Worst: 9/10 Agg: getting up/down and getting situated, getting on/off the toilet. She is not doing any exercises as this time. Describes the pain as more dull and achy. No radiating pain down the leg. No change in the N/T. No loss or change in bowel or bladder. No change in PMHx/Meds since leaving the hospital. - Objective Posture: FH, RS, moderate kyphosis- does not correct but improves with verbal cues. Gait: antalgic- slow freddy- FWW- decrease stance on the right LE. HR/TR: able with UE A. SLS: weight shift. Stairs: not assessed today. ROM: WFL in all planes of the hip with precautions. Observation: incision healing well no s/s of infection. Strength: Hip flexion: 10 Extn: 5 Knee: 4+/5, Ankle: 5/5 - Balance/Special Test Scores Lower Extremity Functional Score: 10 TUG Test Time Seconds: 45.0 WOMAC Total Score: 80 WOMAC Percentatge: 16.6700 - Goals Goal 1:: Patient will be I with HEP and progression Goal Time Frame: 6-8 Weeks Goal 2:: Patient will ambulate >300 feet with LRD and normalized gait pattern Goal Time Frame: 4-6 Weeks Goal 3:: Patient will asc/desc 8 stairs recip with 1 HR Goal Time Frame: 4-6 Weeks Goal 4:: Patient will improve TUG test to under 20 seconds with LRD Goal Time Frame: 4-6 Weeks - Rehabilitation Potential Physical Therapy Diagnosis: Patient presents with hypomobility s/p right THR 06/19/21. She has decreased LE and core strength/stabilization, flex and muscular endurance leading to abnormal gait and decreased ability to perform ADL's. Rehabilitation Potential: Good - Anticipated Interventions Patient/Client Instruction: Educate patient on: Benefits of Fitness Program Therapeutic Exercise to Include: Strength training, Endurance training, Balance training, Coordination, Body mechanics, Postural training, Flexibilty training, Gait and locomotor training, Neuromotor development, Passive ROM, Active ROM, Dynamic Lumbar Stabilization For the Purpose of:: To improve muscle performance and motor function TENS: Yes Cryotherapy (ice pack, ice massage): Yes Thermo therapy (hot pack): Yes Ultrasound (thermal/non thermal): No - THR Thank you for the opportunity to evaluate your patient. For Medicare and Medicare HMO plans, please review the plan of care and approve it. It will need to be FAXED BACK to us at [phone] for Medicare purposes. For Medicare only, by signing this I certify the plan of care. Please let me know if there are questions or concerns regarding this plan of care. Physician Signature: Date:
--- NOTE | 2021-07-26 10:35 | HP.PTREVAL ---
Gomez Kunz PA-C, It has been my pleasure to treat RED MCMULLEN over the last 10 visits for Right THR 06/19/21. Please see the progress note below for an update on the physical therapy plan of care! Subjective: Patient reports that she is doing much better. She is doing her exercises at home. She is having no pain. Her incision is fully healed. She feels that she is 90% better. She does not use an AD but does have the walker close. She is missing her confidence and balance. Objective/Function: Posture: FH, RS, moderate kyphosis- does not correct but improves with verbal cues. Gait: no deviation noted- still uses FWW due to balance deficit- decreased freddy HR/TR: able with UE A. SLS: weight shift. Stairs: asc/desc 8 recip with 2 HR. ROM: WFL in all planes of the hip with precautions. Sit to Stand: x 5 with single UE A. Strength: Hip flexion: 30 Extn: 15 Knee: 4+/5, Ankle: 5/5 Plan Plan: 07/26/21: Continue 2x a week for 4 weeks to focus on balance and gait. 06/19/21- Right THR- Focus on LE and core strength/stabilization with functional mobility Balance/Gait/Functional tests - Balance/Special Test Scores Lower Extremity Functional Score: 10 TUG Test Time Seconds: 18 Tug Test: >30sec.=impaired mobility WOMAC Total Score: 38 WOMAC Percentage: 60.4200 Goals Goal 1:: Patient will be I with HEP and progression Goal Time Frame: 6-8 Weeks Goal Progress: Progressing Goal 2:: Patient will ambulate >300 feet with LRD and normalized gait pattern Goal Time Frame: 4-6 Weeks Goal Progress: Progressing Goal 3:: Patient will asc/desc 8 stairs recip with 1 HR Goal Time Frame: 4-6 Weeks Goal Progress: Progressing Goal 4:: Patient will improve TUG test to under 20 seconds with LRD Goal Time Frame: 4-6 Weeks Goal Progress: Progressing Anticipated Interventions Patient/Client Instruction: Educate patient on: Benefits of Fitness Program Therapeutic Exercise to Include: Strength training, Endurance training, Balance training, Coordination, Body mechanics, Postural training, Flexibilty training, Gait and locomotor training, Neuromotor development, Passive ROM, Active ROM, Dynamic Lumbar Stabilization For the Purpose of:: To improve muscle performance and motor function TENS: Yes Cryotherapy (ice pack, ice massage): Yes Thermo therapy (hot pack): Yes Ultrasound (thermal/non thermal): No - THR Please do not hesitate to contact me at [phone] by phone or if you have questions or concerns regarding this new plan of care! Sincerely, MARISSA GamaT
--- NOTE | 2021-08-23 11:16 | HP.PTDCSUM ---
It has been my pleasure to treat RED MCMULLEN referred by Gomez Kunz PA-C, with the diagnosis of Right THR 06/19/21 for a total of 14 visit(s). Discharge Date: Please see the following information for a summary of their discharge status. Subjective: Patient reports that she is doing really well- she has no problems with her hip. She went to a ballgame and she had vertigo due to the heat. She feels that its more her vertigo and balance that holds her back and that is more weather dependent. She feels that the hip is 100%. She does not use a cane or walker at home during the day or night but she does use it when she goes out. % Improvement: 100 Objective/Function: Posture: FH, RS, moderate kyphosis- does not correct but improves with verbal cues. Gait: no deviation noted- still uses FWW due to balance deficit- decreased freddy HR/TR: able with UE A. SLS: weight shift. Stairs: asc/desc 8 recip with 2 HR for safety. ROM: WFL in all planes of the hip with precautions. Sit to Stand: x8 with single UE A. Strength: Hip flexion: 35 Extn: 25 Knee: 4+/5, Ankle: 5/5. Goal 1:: Patient will be I with HEP and progression Goal Progress: Goal Met Goal 2:: Patient will ambulate >300 feet with LRD and normalized gait pattern Goal Progress: Goal Met Goal 3:: Patient will asc/desc 8 stairs recip with 1 HR Goal Progress: Progressing Goal 4:: Patient will improve TUG test to under 20 seconds with LRD Goal Progress: Progressing Plan: 08/23/21:Discharge to I HEP- reviewed and encouraged her to call if questions. 07/26/21: Continue 2x a week for 4 weeks to focus on balance and gait. 06/19/21- Right THR- Focus on LE and core strength/stabilization with functional mobility If there are questions or concerns regarding this patient's physical therapy, please feel free to call me at [phone]. Thank you for the referral of this patient. Sincerely, Luciana Mitchell, DPT Balance/Gait/Functional tests - Balance/Special Test Scores Lower Extremity Functional Score: 10 TUG Test Time Seconds: 25 Tug Test: 20-30sec.=variable mobility WOMAC Total Score: 6 WOMAC Percentage: 93.7500
== END 2021-08-23 12:25 | disposition home or self-care (01) ==
LOC: PT 11:00
PROVIDERS: PCP Physician Assistant; Referring Provider Physician Assistant Surgical; Visit Provider Physician Assistant Surgical
DX: M16.11 Unilateral primary osteoarthritis, right hip (principal)
CPT/HCPCS: 97110; 97162; 97164